=== PATIENT | female | born 1985 | race Caucasian/White ===

== ENCOUNTER 2023-02-03 12:43 | Outpatient (CLI) | payer BC ==
[2023-02-03] MEDS ORDERED: iohexoL 300 mgI/mL, 150 ML INFUS..BTL IV ONE (13:17)
== END 2023-02-03 20:44 | disposition home or self-care (01) ==
LOC: SRD 12:43
PROVIDERS: ATTEND Specialist
DX: N92.6 Irregular menstruation, unspecified (principal)
CPT/HCPCS: 74740; 58340; Q9967; C1751